=== PATIENT | female | born 1980 | race Caucasian/White ===

== ENCOUNTER 2016-06-03 11:51 | Emergency (ER) | payer OTHER ==
[2016-06-03 12:09] VITALS: BMI 30.2
[2016-06-03 12:12] VITALS: TEMP 97.8
--- NOTE | 2016-06-03 13:01 | ED PDOC ---
Arrival/HPI - General Chief Complaint: Lower Extremity Problem/Injury Time Seen by Provider: 06/03/16 12:19 Historian: Patient - History of Present Illness Narrative History of Present Illness (Text): 06/03/16 12:58 35yo female present with complaint of right ankle pain s/p trauma a week ago. States she twisted her ankle while walking. Her pain improved and then started again with ambulation 2days ago. Did not take any analgesic. Denies any other complaint. Past Medical History - Provider Review Nursing Documentation Reviewed: Yes - Psychiatric Hx Substance Use: No - Surgical History Other/Comment: Ovarian? patient unsure - Anesthesia Hx Anesthesia: No Family/Social History - Physician Review Nursing Documentation Reviewed: Yes Family/Social History: Unknown Family HX Smoking Status: Never Smoked Hx Alcohol Use: No Hx Substance Use: No Allergies/Home Meds Allergies/Adverse Reactions: Allergies No Known Allergies Allergy (Verified 06/03/16 12:09) Review of Systems - Physician Review All systems were reviewed & negative as marked: Yes - Review of Systems Constitutional: Normal Eyes: Normal ENT: Normal Respiratory: Normal Cardiovascular: Normal Gastrointestinal: Normal Genitourinary Female: Normal Musculoskeletal: Arthralgias (Right ankle pain) Skin: Normal Neurological: Normal Endocrine: Normal Hemo/Lymphatic: Normal Psychiatric: Normal Physical Exam Vital Signs Reviewed: Yes Vital Signs Temp Pulse Resp BP Pulse Ox 06/03/16 12:11 97.8 F 85 17 106/74 98 Temperature: Afebrile Blood Pressure: Normal Pulse: Regular Respiratory Rate: Normal Appearance: Positive for: Well-Appearing, Non-Toxic, Comfortable Pain Distress: None Mental Status: Positive for: Alert and Oriented X 3 - Systems Exam Head: Present: Atraumatic, Normocephalic Pupils: Present: PERRL Extroacular Muscles: Present: EOMI Conjunctiva: Present: Normal Mouth: Present: Moist Mucous Membranes Neck: Present: Normal Range of Motion Respiratory/Chest: Present: Clear to Auscultation, Good Air Exchange. No: Respiratory Distress, Accessory Muscle Use Cardiovascular: Present: Regular Rate and Rhythm, Normal S1, S2. No: Murmurs Abdomen: Present: Normal Bowel Sounds. No: Tenderness, Distention, Peritoneal Signs Back: Present: Normal Inspection Upper Extremity: Present: Normal Inspection. No: Cyanosis, Edema Lower Extremity: Present: Normal Inspection, NORMAL PULSES, Normal ROM, Tenderness (Over the right lateral malleolus), Neurovascularly Intact, Capillary Refill < 2 s. No: Edema, Cyanosis, Swelling, Erythema, Deformity, Temperature Abnormalties Neurological: Present: GCS=15, CN II-XII Intact, Speech Normal Skin: Present: Warm, Dry, Normal Color. No: Rashes Psychiatric: Present: Alert, Oriented x 3, Normal Insight, Normal Concentration Medical Decision Making ED Course and Treatment: 06/03/16 13:00 Right ankle xray - No acute finding Hieu wrap applied. referred to her PMD/ortho TRT ED for any new or worsening symptoms - RAD Interpretation Radiology Orders: 06/03/16 12:19 ANKLE RIGHT 3 VIEWS ROUTINE [RAD] Stat Disposition/Present on Arrival - Present on Arrival Any Indicators Present on Arrival: No History of DVT/PE: No History of Uncontrolled Diabetes: No Urinary Catheter: No History of Decub. Ulcer: No History Surgical Site Infection Following: None - Disposition Have Diagnosis and Disposition been Completed?: Yes Diagnosis: Ankle sprain Disposition: HOME/ ROUTINE Disposition Time: 13:00 Patient Plan: Discharge Condition: STABLE Discharge Instructions (ExitCare): Ankle Sprain (ED) Additional Instructions: take medication as directed Follow up with your Doctor/orthopedist Return to ED for any new or worsening symptoms Prescriptions: Ibuprofen [Motrin Tab] 600 mg PO Q6 #20 tab Referrals: Francis Cardona DO [Staff Provider] - Follow up with primary
--- NOTE | 2016-06-03 13:05 | RAD ---
PROCEDURE: Right Ankle Radiographs. HISTORY: ankle pain s/p trauma COMPARISON: None FINDINGS: BONES: Normal. No fracture. JOINTS: Normal. No osteoarthritis. Ankle mortise maintained. Talar dome intact SOFT TISSUES: Normal. OTHER FINDINGS: None. IMPRESSION: Normal right ankle radiographs.
[2016-06-03 13:13] VITALS: BP 106/76; PULSE 81; RESP 16; O2SAT 100
== END 2016-06-03 13:13 | disposition home or self-care (01) ==
LOC: MERGE 11:51 → ED 11:51
DX: S93.401A Sprain of unspecified ligament of right ankle, initial encounter (principal); X50.0XXA Overexertion from strenuous movement or load, initial encounter; Y93.01 Activity, walking, marching and hiking; Y92.9 Unspecified place or not applicable

== ENCOUNTER 2016-11-09 14:31 | Emergency (ER) | payer OTHER ==
[2016-11-09] MEDS ORDERED: TDAP Vaccine 0.5 mL Syr IM ONE (14:52)
[2016-11-09 14:54] VITALS: BP 138/72; PULSE 57; RESP 18; TEMP 97.8; O2SAT 98; BMI 27.4
--- NOTE | 2016-11-09 14:56 | ED PDOC ---
Arrival/HPI - General Historian: Patient, Family (daughter who was spanish medical interpreter) - History of Present Illness Time/Duration: Prior to Arrival Context: Home - General Chief Complaint: Abnormal Skin Integrity Time Seen by Provider: 11/09/16 14:51 - History of Present Illness Narrative History of Present Illness (Text): 11/09/16 14:53 This 36 yo female who denies pmh, presents to this emergency department complaining of left middle finger laceration x [employer]IL[employer] OFFIC[employer]. Patient stated while using a kitchen knife, she accidentally cut her finger. Fingers has FROM. Denies other complains. Patient is right hand dominant. (Lamberto Zapata) Past Medical History - Provider Review Nursing Documentation Reviewed: Yes - Infectious Disease Hx of Infectious Diseases: None - Reproductive Menopause: No - Cardiac Hx Cardiac Disorders: No - Pulmonary Hx Respiratory Disorders: No - Neurological Hx Neurological Disorder: No - HEENT Hx HEENT Disorder: No - Renal Hx Renal Disorder: No - Endocrine/Metabolic Hx Endocrine Disorders: No - Hematological/Oncological Hx Blood Disorders: No - Integumentary Hx Dermatological Disorder: No - Musculoskeletal/Rheumatological Hx Musculoskeletal Disorders: No - Gastrointestinal Hx Gastrointestinal Disorders: Yes Hx Gall Bladder Disease: Yes - Genitourinary/Gynecological Hx Genitourinary Disorders: No - Psychiatric Hx Psychophysiologic Disorder: No Hx Substance Use: No - Surgical History Other/Comment: Ovarian? patient unsure - Anesthesia Hx Anesthesia: Yes Family/Social History - Physician Review Nursing Documentation Reviewed: Yes Family/Social History: Other (non-contributory) Smoking Status: Never Smoked Hx Alcohol Use: No Hx Substance Use: No Allergies/Home Meds Allergies/Adverse Reactions: Allergies No Known Allergies Allergy (Verified 07/09/15 20:16) Review of Systems - Review of Systems Constitutional: Normal. absent: Fatigue, Weight Change, Fevers, Night Sweats Eyes: Normal ENT: Normal Respiratory: Normal Cardiovascular: Normal Gastrointestinal: Normal Genitourinary Female: Normal Musculoskeletal: Other ((+) left middle finger laceration) Skin: Normal Neurological: Normal Endocrine: Normal Hemo/Lymphatic: Normal Psychiatric: Normal Physical Exam Temperature: Afebrile Blood Pressure: Normal Pulse: Regular Respiratory Rate: Normal Appearance: Positive for: Well-Appearing, Non-Toxic, Comfortable Pain Distress: None Mental Status: Positive for: Alert and Oriented X 3 - Systems Exam Head: Present: Atraumatic, Normocephalic Pupils: Present: PERRL Extroacular Muscles: Present: EOMI Conjunctiva: Present: Normal Mouth: Present: Moist Mucous Membranes Neck: Present: Normal Range of Motion Upper Extremity: Present: Normal ROM, NORMAL PULSES, Neurovascularly Intact, Capillary Refill < 2s, Other ((+) 2.5 cm finger laceration near left 3rd MPJ area, palmar aspect of hand). No: Cyanosis, Edema Lower Extremity: Present: Normal Inspection, Normal ROM, Capillary Refill < 2 s Neurological: Present: GCS=15, CN II-XII Intact, Speech Normal, Motor Func Grossly Intact, Normal Sensory Function, Normal Cerebellar Funct, Gait Normal, Memory Normal Skin: Present: Warm, Dry, Normal Color. No: Rashes Psychiatric: Present: Alert, Oriented x 3 Vital Signs Temp Pulse Resp BP Pulse Ox 11/09/16 14:40 97.8 F 57 L 18 138/72 98 Medical Decision Making Re-evaluation Time: 15:28 Reassessment Condition: Re-examined, Improved ED Course and Treatment: 11/09/16 15:28 Patient is resting comfortably, and is in no acute distress. Patient was instructed to follow up with PMD in 1-2 days for further evaluation. (Lamberto Zapata) - Medication Orders Current Medication Orders: Discontinued Medications Cephalexin Monohydrate (Keflex) 500 mg PO STAT STA PRN Reason: Protocol Stop: 11/09/16 14:53 Last Admin: 11/09/16 15:19 Dose: 500 mg Tetanus/Reduced Diphtheria/Acell Pertussis (Boostrix Vaccine Inj) 0.5 ml IM .ONCE ONE Stop: 11/09/16 14:53 Last Admin: 11/09/16 15:17 Dose: 0.5 ml [facility] Immunization Data Document 11/09/16 15:17 OCS (Rec: 11/09/16 15:17 OCS [facility] [id number][place] Immunization Data Vaccine Lot Number [id number] Vaccine Expiration Date 10/23/18 Site Given Left Deltoid - Procedure PROCEDURE NOTE (Text): 11/09/16 15:29 PROCEDURE: LACERATION REPAIR Performed by the emergency provider Location: left 3rd finger Length: 2.5 cm Description: clean wound edges, no foreign bodies Distal CMS: Normal. No deficits. Neurovascularly intact. Anesthesia: Lidocaine 1% without Epi Preparation: The wound was cleaned with NS and [place]. The area was prepped and draped in the usual sterile fashion. Exploration: The wound was explored and no foreign bodies were found. Procedure: The wound was closed with Monocryl, 4-0, interrupted. There was good approximation. In total, 5 were used. Post-Procedure: Good closure and hemostasis. The patient tolerated the procedure well and there were no complications. CSM remains intact. Post procedure dressing applied. ( Lamberto Zapata) Disposition/Present on Arrival - Present on Arrival Any Indicators Present on Arrival: No History of DVT/PE: No History of Uncontrolled Diabetes: No Urinary Catheter: No History of Decub. Ulcer: No History Surgical Site Infection Following: None - Disposition Have Diagnosis and Disposition been Completed?: Yes Disposition Time: 15:32 Patient Plan: Discharge - Disposition Diagnosis: Finger laceration Disposition: HOME/ ROUTINE Patient Problems: Current Active Problems Problem Status Onset Finger laceration Acute Condition: IMPROVED Discharge Instructions (ExitCare): Finger Laceration (ED) Additional Instructions: Call private doctor for follow up visit in 2-3 days for wound recheck. Keep wound clean and dry for 2 days, then clean wound daily with soap and water only. Sutures are absorbable , so they will fall off. If not return to ER in 2 weeks. Return sooner if infection occurs Prescriptions: Cephalexin [Keflex] 500 mg PO QID #20 capsule Ibuprofen [Motrin] 600 mg PO Q8 PRN #20 tab PRN Reason: Pain, Severe (8-10) Referrals: [facility] [employer] [Outside] - Follow up with primary [facility] [Outside] - Follow up with primary Forms: [employer] (Tajik), WORK NOTE
== END 2016-11-09 15:45 | disposition home or self-care (01) ==
LOC: ED 14:31
DX: S61.213A Laceration without foreign body of left middle finger without damage to nail, initial encounter (principal); W26.0XXA Contact with knife, initial encounter; Z23 Encounter for immunization